=== PATIENT | male | born 1965 | race African-American/Black ===

== ENCOUNTER 2020-05-05 13:10 | Emergency (ER) | payer OTHER ==
[~2020-05-05] VITALS: Ht 190.5 cm; Wt 136.1 kg
[2020-05-05 13:19] VITALS: BP 217/113
[2020-05-05] MEDS ORDERED: cloNIDine HCL 0.1 MG TAB PO ONE (13:30)
== END 2020-05-05 15:18 | disposition left against medical advice (07) ==
LOC: ER 13:10 → EDBD 13:10 → ER 14:59
DX: G93.41 Metabolic encephalopathy (principal); I16.1 Hypertensive emergency
CPT/HCPCS: 99291